=== PATIENT | female | born 1995 ===

== ENCOUNTER 2018-08-15 13:52 | Emergency (ER) | payer MEDICAID ==
[~2018-08-15] VITALS: Ht 149.9 cm; Wt 46.8 kg
[2018-08-15 14:02] VITALS: BP 146/92; Ht 149.9 cm; Wt 46.8 kg
[2018-08-15 16:09] LABS: HCG URINE POSITIVE (NEGATIVE)
[2018-08-15 16:19] LABS: APPEARANCE HAZY (CLEAR); BILIRUBIN NEGATIVE (NEGATIVE); COLOR DK YELLOW (YELLOW); GLUCOSE NEGATIVE (NEGATIVE); KETONE NEGATIVE (NEGATIVE); NITRITE NEGATIVE (NEGATIVE); PROTEIN NEGATIVE (NEGATIVE); SPECIFIC GRAVITY 1.015 (1.005-1.020); UROBILINOGEN NORMAL (NORMAL)
[2018-08-15 16:20] LABS: EPITHELIAL CELLS 0-5 /hpf (0-5); RED CELLS - URINE 0-5 /hpf (0-5); WHITE CELLS - URINE 0-5 /hpf (0-5)
[2018-08-15 16:23] LABS: BACTERIA FEW /hpf (NONE SEEN)
== END 2018-08-15 17:04 | disposition home or self-care (01) ==
LOC: D.ER 13:52
PROVIDERS: Emergency Medicine
DX: R10.9 Unspecified abdominal pain (principal); N91.2 Amenorrhea, unspecified; Z32.01 Encounter for pregnancy test, result positive

== ENCOUNTER 2018-10-07 20:39 | Emergency (ER) | payer MEDICAID ==
[~2018-10-07] VITALS: Ht 149.9 cm; Wt 54.5 kg
[2018-10-07 20:51] VITALS: Ht 149.9 cm; Wt 54.5 kg
[2018-10-07 21:24] LABS: BASOPHILS 0.2 % (0-2); HEMATOCRIT 33.4 % (36.0-48.0); HEMOGLOBIN 11.6 g/dL (12-16); IMMATURE GRANULOCYTES 0.4 % (0-5); LYMPHOCYTES 17.7 % (15-50); MCH 31.5 pg (26.0-34.0); MCHC 34.7 g/dL (31.0-37.0); MCV 90.8 fL (80.0-100.0); MEAN PLATELET VOLUME 9.5 fL (7.4-10.4); MONOCYTES 7.3 % (2-11); NEUTROPHILS 67.4 % (40-80); PLATELET COUNT 188 10x3/uL (130-400); RBC 3.68 10x6/uL (4.00-5.40); RDW 13.3 % (11.5-14.5); WBC 8.3 10x3/uL (4.8-10.8)
[2018-10-07 21:29] LABS: APPEARANCE HAZY (CLEAR); BILIRUBIN NEGATIVE (NEGATIVE); COLOR YELLOW (YELLOW); GLUCOSE NEGATIVE (NEGATIVE); KETONE NEGATIVE (NEGATIVE); NITRITE NEGATIVE (NEGATIVE); PROTEIN NEGATIVE (NEGATIVE); SPECIFIC GRAVITY 1.025 (1.005-1.020); UROBILINOGEN NORMAL (NORMAL)
[2018-10-07 21:30] LABS: BACTERIA MODERATE /hpf (NONE SEEN); EPITHELIAL CELLS 0-5 /hpf (0-5); RED CELLS - URINE 0-5 /hpf (0-5); WHITE CELLS - URINE 0-5 /hpf (0-5)
[2018-10-07 21:31] LABS: AMORPHOUS SEDIMENT >1+ /lpf (NONE SEEN)
[2018-10-07 21:38] LABS: ALBUMIN 2.9 g/dL (3.4-5.0); ALKALINE PHOSPHATASE 66 U/L (46-116); ALT (SGPT) 7 U/L (10-68); BILIRUBIN - TOTAL 0.16 mg/dL (0.2-1.3); CALC OSMOLALITY 276 mosm/kg (275-300); CALCIUM 8.9 mg/dL (8.5-10.1); CARBON DIOXIDE 26.7 mmol/L (21.0-32.0); CHLORIDE - SERUM 106 mmol/L (98-107); CREATININE - SERUM 0.5 mg/dL (0.6-1.3); POTASSIUM - SERUM 3.4 mmol/L (3.5-5.1); PROTEIN - SERUM 6.8 g/dL (6.4-8.2); SODIUM 141 mmol/L (136-145); UREA NITROGEN 6 mg/dL (7-18); eGFR NON AFRICAN AMERICAN > 90 mL/min (90-120)
[2018-10-07 21:39] LABS: GLUCOSE 69 mg/dL (74-106)
[2018-10-07 22:01] LABS: HCG - QUANTITATIVE (MATERNAL) 25224 mIU/mL
[2018-10-08 02:15] VITALS: BP 109/60
== END 2018-10-08 00:49 | disposition home or self-care (01) ==
LOC: D.ER 20:39
PROVIDERS: Emergency Medicine
DX: O26.892 Other specified pregnancy related conditions, second trimester (principal); Z3A.16 16 weeks gestation of pregnancy